=== PATIENT | female | born 1930 ===

== ENCOUNTER → 2016-10-29 | Outpatient (REF) | LOC: ZLAB.WCH 14:41 | DX: Z01.89 Encounter for other specified special examinations (principal) ==

== ENCOUNTER → 2017-02-13 | Outpatient (REF) | LOC: ZLAB.WCH 05:10 | DX: Z01.89 Encounter for other specified special examinations (principal) ==

== ENCOUNTER → 2017-04-22 | Outpatient (REF) | LOC: ZLAB.WCH 08:38 | DX: Z01.89 Encounter for other specified special examinations (principal) ==

== ENCOUNTER → 2017-11-15 | Outpatient (REF) | LOC: ZLAB.WCH 18:12 | DX: Z01.89 Encounter for other specified special examinations (principal) ==

== ENCOUNTER → 2018-05-12 | Outpatient (REF) | LOC: ZLAB.WCH 16:05 | DX: Z01.89 Encounter for other specified special examinations (principal) ==